=== PATIENT | female | born 1985 | race Caucasian/White ===

== ENCOUNTER 2025-03-22 23:31 | Emergency (ER) | payer OTHER ==
[~2025-03-22] VITALS: Ht 167.6 cm; Wt 68.6 kg
[2025-03-22 23:35] VITALS: BP 121/89; TEMP 98.1
[2025-03-23 00:04] LABS: MEAN PLATELET VOLUME 8.6 FL (7.4-10.4); RED CELL DISTRIBUTION WIDTH 12.6 % (11.5-14.5)
--- NOTE | 2025-03-23 00:08 | RADIOLOGY REPORT ---
CHEST RADIOGRAPH Indication: CP Technique: Single frontal view of the chest was obtained COMPARISON: None FINDINGS: Lines and Tubes: None Lungs: Clear Pleura: No effusion. No pneumothorax. Cardiomediastinal contours: Unremarkable Bones: Unremarkable IMPRESSION: 1. No acute disease.
[2025-03-23 00:23] LABS: CREATININE 0.66 MG/DL (0.40-0.90); PRO BRAIN NATRIURETIC PEPTIDE 111 PG/ML (0-125); TOTAL CARBON DIOXIDE 29.8 MMOL/L (24-32); eCRCL 109 ML/MIN; eGFR > 90 ML/MIN
--- NOTE | 2025-03-23 00:33 | Physician Documentation ---
History of Present Illness ~ Stated Complaint: CHEST PAINS Time Seen by MD: 00:36 HPI This is a 39-year-old female with no past cardiac history who presents with six days of lower chest pain radiating substernally anterior bilateral jaws with associated shortness of breath patient reports pain is worse with lying down. History as above. Patient did try some antacids with no relief. History of constipation this past week however she took some stool softeners and having regular bowel movements now. She was having some dysuria which has since res olved. Denies one-sided leg pain Medication Reconciliation Allergies: Coded Allergies: No Known Allergies (Unverified , 03/23/25) Review of Systems ROS As stated above in the HPI, otherwise all systems are reviewed and negative. Physical Exam Vital Signs: Temperature: 98.1, Source: Oral, Heart Rate: 80, Respiratory Rate: 16, BP: 121/89, Pulse Oximetry: 99, Weight: 151.000 Physical Exam General: Patient is awake, alert, oriented x4 in no acute distress and well appearing.~ Head: Normocephalic and atraumatic. Eyes: Conjunctival normal. EOMI. PERRL. ENT: Mucous membranes moist. Neck: Supple, trachea is midline. Chest: Clear to auscultation bilaterally without rales, rhonchi, or wheezes. There is no accessory muscle use or retractions. Cardiac: RRR without murmurs, gallops, or rubs. Abd: Soft, nondistended, nontender, with normoactive bowel sounds. No guarding, rebound, or rigidity. Extremities: Normal strength. Normal range of motion. No deformities or edema. No calf tenderness to palpation Progress Results/Orders Results/Orders Orders - JEAN PIERRE BAEZ MD Stat Ekg (03/22/25 ) Electrocardiogram (03/22/25 23:38) Chest,Single View (03/22/25 23:56) Saline Lock (03/22/25 23:38) Monitor (03/22/25 23:38) Oxygen (03/22/25 23:38) Hs Troponin I W Calculations (03/23/25 01:38) Hs Troponin I W Calculations (03/23/25 02:38) Completed Orders - JEAN PIERRE BAEZ MD Cbc/Diff (03/22/25 23:38) MG (03/22/25 23:38) PBNP (03/22/25 23:38) Chest,Single View (03/22/25 23:56) Aspirin 81mg Chew Tablet (Aspirin 81mg C (03/22/25 23:40) BMP (03/22/25 23:38) Hs Troponin I W Calculations (03/22/25 23:38) Mag & Alum Hydrox/Simeth Susp (Maalox Or (03/23/25 00:50) Lidocaine 2% Viscous (Xylocaine 2% Visco (03/23/25 00:50) Medications Received in ER Medications (Trade) Dose Ordered Sig/María Route PRN Reason Start Time Stop Time Status Last Admin Dose Admin (aspirin 81MG chew tablet) 324 mg ONCE ONCE PO 03/22/25 23:40 03/22/25 23:41 DC 03/23/25 00:14 324 MG (Maalox oral suspension) 30 ml ONCE ONCE PO 03/23/25 00:50 03/23/25 00:51 DC 03/23/25 01:23 30 ML (Xylocaine 2% Viscous 15mL cup) 15 ml ONCE ONCE MM 03/23/25 00:50 03/23/25 00:51 DC 03/23/25 01:23 15 ML Vital Signs 03/22/25 03/23/25 03/23/25 23:35 00:38 00:51 Temp 98.1 Pulse 80 81 Resp 16 12 16 B/P (MAP) 121/89 Pulse Ox 99 100 O2 Flow Rate 2.0 Laboratory Tests Test 03/22/25 23:48 White Blood Count 8.7 Red Blood Count 3.74 L Hemoglobin 11.4 L Hematocrit 33.4 L Mean Corpuscular Volume 89.2 Mean Corpuscular Hemoglobin 30.5 Mean Corpuscular Hemoglobin Concent 34.2 Red Cell Distribution Width 12.6 Platelet Count 219 Mean Platelet Volume 8.6 Neutrophils (%) (Auto) 73.5 Lymphocytes (%) (Auto) 16.8 L Monocytes (%) (Auto) 8.9 Eosinophils (%) (Auto) 0.5 Basophils (%) (Auto) 0.3 Neutrophils # (Auto) 6.4 Lymphocytes # (Auto) 1.5 Monocytes # (Auto) 0.8 Eosinophils # (Auto) 0.0 Basophils # (Auto) 0.0 CBC Comment Sodium Level 137 Potassium Level 3.6 Chloride Level 102 Carbon Dioxide Level 29.8 Anion Gap 5 L Blood Urea Nitrogen 6 L Creatinine 0.66 Estimated GFR/1.73 m2 > 90 BUN/Creatinine Ratio 9.1 L Glucose Level 115 H Calcium Level 8.4 L Magnesium Level 2.0 Troponin I High Sensitivity 46 Pro-B-Type Natriuretic Peptide 111 Albumin 3.6 Chemistry Comments EKG/XRAY/CT/US/VASC/MRI EKG : Additional Comment EKG interpreted by myself shows time of 2340, rate 73, sinus rhythm, normal axis, no ST changes Chest X-Ray : Additional Comments Exam: CHEST,SINGLE VIEW CHEST RADIOGRAPH Indication: CP Technique: Single frontal view of the chest was obtained COMPARISON: None FINDINGS: Lines and Tubes: None Lungs: Clear Pleura: No effusion. No pneumothorax. Cardiomediastinal contours: Unremarkable Bones: Unremarkable IMPRESSION: 1. No acute disease. Medical Decision Making Findings Patient presented to the emergency room with chest pain as per HPI. Differentials include but are not limited to ACS, reflux, musculoskeletal pain, esophageal spasm therefore emergent labs ordered which were reassuring. Positive response to GI cocktail. I suspect that patient is suffering from reflux causing her symptoms. Discussed with her home medications she has continued to take her PPIs in his scheduled basis. Heart score of 0. She does not smoke and denies family history of heart disease and denies history of blood pressure cholesterol and diabetes. She is low risk. Given patient's age and overall presentation he had not feel she requires investigation into possible aortic pathology and no calf tenderness tachycardia or hypoxia and he had not feel she requires investigation into pulmonary embolism Departure Disposition: 01 HOME / SELF CARE / HOMELESS Impression: Primary Impression: Chest pain Condition: Improved Discharge Instructions: Nonspecific Chest Pain, Adult Referrals: NO PRIMARY CARE PROVIDER (PCP) Signature Scribe Signature: No scribe Attestation: The note accurately reflects work and decisions made by me.Jean Pierre Baez MD 03/23/25 01:40 MAYDA JALLOH Mar 23, 2025 00:33 JEAN PIERRE BAEZ MD Mar 23, 2025 00:44
[2025-03-23 00:38] VITALS: PULSE 81; O2SAT 100
[2025-03-23 00:51] VITALS: RESP 16
[2025-03-23] MEDS: mag hydrox/Alum hydrox/simeth 30ml oral suspension PO ONE (01:23)
[2025-03-23] MEDS: LIDOcaine 2% Viscous 15ml cup MM ONE (01:23)
--- NOTE | 2025-03-23 05:15 | ELECTROCARDIOGRAPH REPORT ---
[facility] Test Date: 2025-03-22 Test Time: 23:38:47 Pat Name: ALCIRA SPENCER Department: EMERGENCY ROOM Room: Gender: F Control Room Technician: ALEXANDRA : 1985 Requested By: CARYN TATE Order Number: [id number] Reading MD: Dr. King Montes Measurements Intervals [place] Rate: 73 P: 54 DE: 136 QRS: 55 QRSD: 80 T: 48 QT: 378 QTc: 417 Interpretive Statements Sinus rhythm ST elev, probable normal early repol pattern Baseline wander in lead(s) II,III,aVF,V3 Electronically Signed On 03-23-2025 21:39:[address] King Montes Please click the below link to view image of tracing.
== END 2025-03-23 02:22 | disposition home or self-care (01) ==
LOC: ER 23:32
DX: R07.89 Other chest pain (principal)
CPT/HCPCS: 36415; 71045; 80048; 83735; 83880; 84484; 85025; 93005; 99285